=== PATIENT | male | born 1980 | race Two or more races ===

== ENCOUNTER 2020-07-21 22:17 | Emergency (ER) | payer BC, OTHER ==
[~2020-07-21] VITALS: Ht 190.5 cm; Wt 154.2 kg
--- NOTE | 2020-07-21 22:20 | NUR ---
PT AAOX4. BIBRA C/O R SHOULDER, R ELBOW, R HAND, R RIB PAIN S/P SLIP AND FALLING 7 STEPS OF STAIRS. -KO. PT PLACED ON MONITOR, SAT 100%. NO ACUTE DISTRESS NOTED. VSS. AWAITING MD FOR EVAL.
[2020-07-21] MEDS ORDERED: TRAMADOL HCL 50 MG TABLET ONE (22:40)
--- NOTE | 2020-07-21 22:47 | NUR ---
RADIOLOGY AT BEDSIDE
[2020-07-21] MEDS ORDERED: TRAMADOL HCL 50 MG TABLET PO ONE (23:00)
--- NOTE | 2020-07-21 23:37 | NUR ---
Patient discharged to home in stable condition. Written and verbal after care instructions given. Patient verbalizes understanding of instruction and RX. Pt ambulated with steady gait. vss.
[2020-07-21 23:38] VITALS: BP 131/71
== END 2020-07-21 23:38 | disposition home or self-care (01) ==
LOC: ER 22:19
DX: S20.211A Contusion of right front wall of thorax, initial encounter (principal); S40.011A Contusion of right shoulder, initial encounter; S50.01XA Contusion of right elbow, initial encounter; E66.01 Morbid (severe) obesity due to excess calories; R00.2 Palpitations; Z68.41 Body mass index [BMI] 40.0-44.9, adult; W01.0XXA Fall on same level from slipping, tripping and stumbling without subsequent striking against object, initial encounter; Y93.89 Activity, other specified; Y92.89 Other specified places as the place of occurrence of the external cause; Y99.8 Other external cause status
CPT/HCPCS: 71045-TC; 73030-TC; 73060-TC; 73080-TC

== ENCOUNTER 2023-02-28 22:29 | Emergency (ER) | payer BC, OTHER ==
[~2023-02-28] VITALS: Ht 190.5 cm; Wt 158.8 kg
--- NOTE | 2023-02-28 22:45 | NUR ---
BIBRA FROM HOME FOR C/O ABD PAIN RDIAITNG TO THE CHEST FOR ABOUT AN HOUR STARTE WHILE WATCHING TV. DENIED N/V/D OR SOB. PLACED PT IN BED 9 ON MONITOR.
[2023-02-28] MEDS ORDERED: IOHEXOL-350 100 ML VIAL IV ONE (23:10)
[2023-02-28] MEDS ORDERED: IV NS 0.9% 250 ML IV ONE (23:11)
[2023-02-28] MEDS ORDERED: CT SWABBABLE VALVE TRANS SET 1 EA INFUS.SET MC ONE (23:11)
--- NOTE | 2023-02-28 23:19 | NUR ---
PT TAKEN TO CT VIA [facility]
--- NOTE | 2023-02-28 23:29 | NUR ---
PT RETURNED TO ER BED [address]
[2023-02-28 23:48] LABS: BASOPHILS % (AUTO) 0.4 % (0.0-2.0); HEMATOCRIT 43 % (39-51); HEMOGLOBIN 14.1 g/dL (13.5-17.5); LYMPHOCYTES # (AUTO) 2.8 K/uL (0.8-4.8); LYMPHOCYTES % (AUTO) 31.3 % (20.0-44.0); MEAN CORPUSCULAR HGB CONC 33 g/dl (31.0-36.0); MEAN CORPUSCULAR VOLUME 86 fL (80-96); MONOCYTES # (AUTO) 0.6 K/uL (0.1-1.30); MONOCYTES % (AUTO) 6.9 % (2.0-12.0); NEUTROPHILS # (AUTO) 5.4 K/uL (1.8-8.9); NEUTROPHILS % (AUTO) 59.4 % (43.0-81.0); PLATELET COUNT (AUTO) 146 K/uL (150-450); RED BLOOD CELL COUNT(AUTO) 4.95 MIL/uL (4.5-6.0); WHITE BLOOD COUNT (AUTO) 9.1 K/uL (4.3-11.0)
[2023-03-01 00:13] LABS: ALANINE AMINOTRANSFERASE 37 U/L (12-78); ALKALINE PHOSPHATASE 70 U/L (46-116); ASPARTATE AMINOTRANSFERASE 15 U/L (15-37); BILIRUBIN,DIRECT 0.1 mg/dL (0.0-0.2); BILIRUBIN,TOTAL 0.4 mg/dL (0.2-1.0); CALCIUM, SERUM 8.3 mg/dL (8.5-10.1); CARBON DIOXIDE 27 mmol/L (21-32); CHLORIDE 104 mmol/L (98-107); CREATININE 0.8 mg/dL (0.6-1.3); GLUCOSE 144 mg/dL (74-106); LIPASE 65 U/L (73-393); POTASSIUM 3.2 mmol/L (3.5-5.1); SODIUM SERUM 139 mmol/L (136-145); TOTAL PROTEIN, SERUM 6.1 g/dL (6.4-8.2); UREA NITROGEN, BLOOD 12 mg/dL (7-18)
--- NOTE | 2023-03-01 03:02 | NUR ---
Patient discharged to home in stable condition. Written and verbal after care instructions given. Patient verbalizes understanding of instruction.
[2023-03-01 03:03] VITALS: BP 145/90
== END 2023-03-01 03:03 | disposition home or self-care (01) ==
LOC: ER 22:32
DX: R10.13 Epigastric pain (principal); I10 Essential (primary) hypertension; I48.91 Unspecified atrial fibrillation; F17.200 Nicotine dependence, unspecified, uncomplicated
CPT/HCPCS: 99285; 74174; 93005; 85025; 80048; 83690; 80076; 36415 ×2; 84484 ×2; J7050; Q9967

== ENCOUNTER 2023-11-21 04:12 | Inpatient (IN) | payer BC, OTHER ==
[~2023-11-21] VITALS: Ht 190.5 cm; Wt 177.4 kg
[2023-11-21] VITALS (11 sets, daily range): BP systolic 104–141; BP diastolic 67–102; TEMP 97.4–98; O2SAT 91–100
[2023-11-21] MEDS ORDERED: DILTIAZEM HCL 25 MG IV ONE ×4 (04:23→05:11)
[2023-11-21] MEDS: DILTIAZEM HCL 50 MG IV IV ONE ×2 (04:28→05:07)
[2023-11-21] MEDS ORDERED: DIGOXIN INJ 0.5 MG/2 ML AMPUL ONE (04:47)
[2023-11-21 04:48] LABS: BASOPHILS # (AUTO) 0.1 K/uL (0.0-0.2); BASOPHILS % (AUTO) 0.6 % (0.0-2.0); EOSINOPHILS # (AUTO) 0.2 K/uL (0.0-0.7); EOSINOPHILS % (AUTO) 2.1 % (0.0-6.0); HEMATOCRIT 43 % (39-51); HEMOGLOBIN 14.8 g/dL (13.5-17.5); LYMPHOCYTES # (AUTO) 2.7 K/uL (0.8-4.8); LYMPHOCYTES % (AUTO) 27.7 % (20.0-44.0); MEAN CORPUSCULAR HEMOGLOBIN 29 PG (26.0-33.0); MEAN CORPUSCULAR HGB CONC 34 g/dl (31.0-36.0); MEAN CORPUSCULAR VOLUME 86 fL (80-96); MONOCYTES # (AUTO) 0.5 K/uL (0.1-1.30); MONOCYTES % (AUTO) 5.2 % (2.0-12.0); NEUTROPHILS # (AUTO) 6.3 K/uL (1.8-8.9); NEUTROPHILS % (AUTO) 64.4 % (43.0-81.0); PLATELET COUNT (AUTO) 161 K/uL (150-450); RED BLOOD CELL COUNT(AUTO) 5.06 MIL/uL (4.5-6.0); RED CELL DISTRIBUTION WIDTH 14.3 % (11.5-15.0); WHITE BLOOD COUNT (AUTO) 9.8 K/uL (4.3-11.0)
[2023-11-21 04:59] LABS: CALCIUM, SERUM 8.5 mg/dL (8.5-10.1); CARBON DIOXIDE 25 mmol/L (21-32); CHLORIDE 106 mmol/L (98-107); CREATININE 0.9 mg/dL (0.6-1.3); GLUCOSE 182 mg/dL (74-106); POTASSIUM 3.6 mmol/L (3.5-5.1); SODIUM SERUM 142 mmol/L (136-145); UREA NITROGEN, BLOOD 15 mg/dL (7-18)
[2023-11-21] MEDS ORDERED: DILTIAZEM HCL 50 MG IV ONE (05:11)
[2023-11-21] MEDS: DILTIAZEM HCL IV 125 MG in IV NS 0.9% 100 ML IV PRN (05:29)
[2023-11-21] MEDS ORDERED: IV NS 0.9% 1,000 ML IV PRN (05:30)
[2023-11-21] MEDS ORDERED: AMLO-212 PO (05:31)
[2023-11-21] MEDS ORDERED: PANT40TA49 PO (05:31)
[2023-11-21] MEDS ORDERED: METO50TA16 PO (05:31)
[2023-11-21] MEDS ORDERED: MAGNESIUM HYDROXIDE 30 ML UDC PO PRN (06:00)
[2023-11-21] MEDS ORDERED: MAG HYDROX/AL HYDROX/SIMETH 30 ML UDC PO PRN (06:00)
[2023-11-21] MEDS ORDERED: ZOLPIDEM TARTRATE 5 MG TABLET PO PRN (06:00)
[2023-11-21] MEDS ORDERED: DILTIAZEM HCL IV 125 MG in IV NS 0.9% 100 ML IV PRN ×2 (06:00→07:30)
[2023-11-21] MEDS ORDERED: ACETAMINOPHEN 325 MG TABLET PO PRN (06:00)
[2023-11-21] MEDS ORDERED: ONDANSETRON HCL/PF 4 MG/2 ML VIAL IVP PRN (06:00)
[2023-11-21] MEDS ORDERED: Z GUARD REMEDY 4 OZ OINT TP PRN (06:00)
[2023-11-21] MEDS: AMIODARONE 150 MG in IV D5W 100 ML IV ONE (08:05)
[2023-11-21] MEDS: AMIODARONE 450 MG in IV D5W 241 ML IV PRN (08:31)
[2023-11-21] MEDS ORDERED: ASPIRIN 81 MG TAB.CHEW PO SCH (09:00)
[2023-11-21] MEDS ORDERED: ENOXAPARIN SODIUM 40 MG/0.4 ML DISP.SYRIN SQ SCH (09:00)
[2023-11-21] MEDS: METOPROLOL TARTRATE 50 MG TABLET PO SCH (09:11)
[2023-11-21] MEDS: AMLODIPINE BESYLATE 5 MG TABLET PO SCH (09:11)
[2023-11-21] MEDS: PANTOPRAZOLE 40 MG TABLET.DR PO SCH (09:11)
[2023-11-21] MEDS: APIXABAN 5 MG TABLET PO SCH (09:14)
[2023-11-21 09:27] LABS: PHOSPHORUS 3.3 mg/dL (2.5-4.9)
[2023-11-21 09:38] LABS: THYROID STIMULATING HORMONE 1.21 uIU/mL (0.358-3.74)
[2023-11-22] VITALS: BP 120/76; TEMP 98.1; O2SAT 100
[2023-11-22 04:00] VITALS: BP 130/72; TEMP 98.4; O2SAT 100
[2023-11-22] MEDS ORDERED: AMIODARONE 150 MG/3 ML VIAL IV ONE (06:09)
[2023-11-22 07:15] LABS: BASOPHILS % (AUTO) 0.3 % (0.0-2.0); EOSINOPHILS # (AUTO) 0.2 K/uL (0.0-0.7); EOSINOPHILS % (AUTO) 1.4 % (0.0-6.0); HEMATOCRIT 45 % (39-51); HEMOGLOBIN 15.2 g/dL (13.5-17.5); LYMPHOCYTES # (AUTO) 2.8 K/uL (0.8-4.8); LYMPHOCYTES % (AUTO) 23.1 % (20.0-44.0); MEAN CORPUSCULAR HEMOGLOBIN 29 PG (26.0-33.0); MEAN CORPUSCULAR HGB CONC 34 g/dl (31.0-36.0); MEAN CORPUSCULAR VOLUME 86 fL (80-96); MONOCYTES # (AUTO) 0.7 K/uL (0.1-1.30); MONOCYTES % (AUTO) 5.4 % (2.0-12.0); NEUTROPHILS # (AUTO) 8.5 K/uL (1.8-8.9); NEUTROPHILS % (AUTO) 69.8 % (43.0-81.0); PLATELET COUNT (AUTO) 162 K/uL (150-450); RED BLOOD CELL COUNT(AUTO) 5.28 MIL/uL (4.5-6.0); RED CELL DISTRIBUTION WIDTH 14.5 % (11.5-15.0); WHITE BLOOD COUNT (AUTO) 12.2 K/uL (4.3-11.0)
[2023-11-22 07:38] LABS: CALCIUM, SERUM 8.7 mg/dL (8.5-10.1); CREATININE 0.8 mg/dL (0.6-1.3); PHOSPHORUS 3.2 mg/dL (2.5-4.9); POTASSIUM 3.9 mmol/L (3.5-5.1)
[2023-11-22 08:00] VITALS: BP 114/88; TEMP 97.9; O2SAT 100
[2023-11-22] MEDS: NICOTINE PATCH (21MG) 21 MG PATCH.TD24 TD SCH (08:55)
[2023-11-22] MEDS ORDERED: RIVAROXABAN 10 MG TABLET PO SCH ×2 (09:30→17:00)
[2023-11-22] MEDS ORDERED: METO50TA7 PO (09:51)
[2023-11-22] MEDS ORDERED: RIVA10TA PO (09:51)
[2023-11-22] MEDS: METOPROLOL SUCCINATE 50 MG TAB.SR.24H PO SCH (10:09)
[2023-11-22 12:00] VITALS: BP 117/70; TEMP 97.7; O2SAT 100
== END 2023-11-22 16:30 | disposition home or self-care (01) | DRG 309 ==
LOC: ER 04:13 → ICU 05:53 → TELE-TD 10:34
PROVIDERS: ADMIT Student in an Organized Health Care Education/Training Program; ATTEND Internal Medicine
DX: I48.91 Unspecified atrial fibrillation (principal); Z68.42 Body mass index [BMI] 45.0-49.9, adult; I10 Essential (primary) hypertension; E11.9 Type 2 diabetes mellitus without complications; G47.33 Obstructive sleep apnea (adult) (pediatric); E66.01 Morbid (severe) obesity due to excess calories; E78.1 Pure hyperglyceridemia; Z79.82 Long term (current) use of aspirin; F17.210 Nicotine dependence, cigarettes, uncomplicated; Z71.6 Tobacco abuse counseling; I49.3 Ventricular premature depolarization
CPT/HCPCS: 36415; 71045-TC; 80048-TC; 80061-TC; 83735-TC; 84100-TC; 84439-TC; 84443-TC; 84484-TC; 85025-TC; 93307-TC; A4223; G0378; J0282; J1160; J1650; J3490; J7030; J7060